=== PATIENT | male | born 1950 | race Caucasian/White ===

== ENCOUNTER 2017-11-21 15:30 | Inpatient (IN) | payer MEDICARE, OTHER ==
[2017-11-21 15:37] VITALS: BMI 24.3
--- NOTE | 2017-11-21 16:12 | PDOC ---
History of Present Illness - General History Source: Patient Exam Limitations: No Limitations - History of Present Illness Initial Comments: 11/21/17 17:55 The patient is a 67-year-old male with a significant past medical history of ETOH abuse, prostate cancer, and BPH, who presents to the emergency department with left rib/flank pain since last night. Patient reports he fell and hit the left side of his lower torso after having a few beers. He describes the pain as intermittent, sharp, and 10/10 in severity. He denies any head trauma and is unsure if he lost consciousness. He states the pain is not related to movement, and his pain can occur at rest. He states he has not taken any medication for pain. He also reports hitting his right medial wrist during the fall resulting in a small abrasion. He denies any skin breaks or external bleeding on the torso. He states he last drank 15 hours ago (vodka and brayan sabina). The patient denies chest pain, shortness of breath, cough, visual changes, headache and dizziness. The patient denies fever, chills, nausea, vomit, diarrhea and constipation. The patient denies dysuria, frequency, urgency and hematuria. Allergies: NKDA Past Surgical History: None reported Social History: daily ETOH use, current everyday smoker PCP: Dr. Meza <Supriya Riley - Last Filed: 11/21/17 17:55> <Margarita العلي - Last Filed: 11/21/17 18:01> <Lyssa Chiu - Last Filed: 11/21/17 22:25> - General Chief Complaint: Injury Stated Complaint: ABD PAIN Time Seen by Provider: 11/21/17 16:11 Past History <Supriya Riley - Last Filed: 11/21/17 17:55> - Past Medical History Anemia: No Asthma: No Cancer: No Cardiac Disorders: No CVA: No COPD: No CHF: No Dementia: No Diabetes: No GI Disorders: No Disorders: Yes (enlarged prostate) HTN: No Hypercholesterolemia: No Liver Disease: No Seizures: No Thyroid Disease: No - Surgical History Abdominal Surgery: No Appendectomy: No Cardiac Surgery: Yes Cholecystectomy: No Lung Surgery: No Neurologic Surgery: No Orthopedic Surgery: No - Immunization History Td Vaccination: Yes Immunization Up to Date: Yes - Suicide/Smoking/Psychosocial Hx Smoking Status: No Smoking History: Current every day smoker Years of Tobacco Use: 5 Have you smoked in the past 12 months: Yes Number of Cigarettes Smoked Daily: 10 Cigars Per Day: 0 Information on smoking cessation initiated: No 'Breaking Loose' booklet given: 03/11/15 Hx Alcohol Use: Yes Drug/Substance Use Hx: No Substance Use Type: Alcohol Hx Substance Use Treatment: No <Margarita العلي - Last Filed: 11/21/17 18:01> <Lyssa Chiu - Last Filed: 11/21/17 22:25> - Past Medical History Allergies/Adverse Reactions: Allergies Allergy/AdvReac Type Severity Reaction Status Date / Time No Known Allergies Allergy Verified 11/21/17 15:36 Home Medications: Ambulatory Orders Aspirin 81 mg PO PRN PRN 04/10/13 Hydroxyurea 500 mg PO BID 04/10/13 Tamsulosin HCl 0.4 mg PO BID 02/14/15 Review of Systems - Review of Systems Able to Perform ROS?: Yes Comments:: 11/21/17 17:55 GENERAL/CONSTITUTIONAL: No fever or chills. No weakness. HEAD, EYES, EARS, NOSE AND THROAT: No change in vision. No ear pain or discharge. No sore throat. CARDIOVASCULAR: No chest pain or shortness of breath. RESPIRATORY: No cough, wheezing, or hemoptysis. GASTROINTESTINAL: No nausea, vomiting, diarrhea or constipation. GENITOURINARY: No dysuria, frequency, or change in urination. MUSCULOSKELETAL: (+) Left rib/flank pain. No joint or muscle swelling. No neck pain. SKIN: No rash. NEUROLOGIC: No headache, vertigo, loss of consciousness, or change in strength/ sensation. ENDOCRINE: No increased thirst. No abnormal weight change. HEMATOLOGIC/LYMPHATIC: No anemia, easy bleeding, or history of blood clots. ALLERGIC/IMMUNOLOGIC: No hives or skin allergy. <Supriya Riley - Last Filed: 11/21/17 17:55> *Physical Exam - Vital Signs Last Vital Signs Temp Pulse Resp BP Pulse Ox 97.9 F 89 18 151/91 97 11/21/17 15:32 11/21/17 17:20 11/21/17 17:20 11/21/17 17:20 11/21/17 17:20 - Physical Exam Comments: 11/21/17 17:55 GENERAL: Awake, alert, and fully oriented, (+) anxious, (+) uncomfortable HEAD: No signs of trauma EYES: PERRLA, EOMI, sclera anicteric, conjunctiva clear ENT: Auricles normal inspection, hearing grossly normal, nares patent, oropharynx clear without exudates. Moist mucosa. (+) Tongue fasciculations. NECK: Normal ROM, supple, no lymphadenopathy, JVD, or masses LUNGS: Breath sounds equal, clear to auscultation bilaterally. No wheezes, and no crackles HEART: (+) Mildly tachycardic. (+) Tender in the left inferior posterior chest wall with no ecchymosis, crepitus, or deformity. Regular rhythm, normal S1 and S2, no murmurs, rubs or gallops ABDOMEN: Soft, (+) Tender in the LUQ, normoactive bowel sounds. No guarding, no rebound. No masses EXTREMITIES: Normal range of motion, no edema. No clubbing or cyanosis. No cords, erythema, or tenderness. No gross deformity. NEUROLOGICAL: Cranial nerves II through XII grossly intact. Normal speech, normal gait. (+) Anxious affect. SKIN: Warm, Dry, normal turgor, no rashes or lesions noted. <Supriya Riley - Last Filed: 11/21/17 17:55> - Vital Signs Last Vital Signs Temp Pulse Resp BP Pulse Ox 97.9 F 101 H 20 161/107 97 11/21/17 15:32 11/21/17 15:32 11/21/17 15:32 11/21/17 15:32 11/21/17 15:32 <Margarita العلي - Last Filed: 11/21/17 18:01> - Vital Signs Last Vital Signs Temp Pulse Resp BP Pulse Ox 97.9 F 89 18 151/91 97 11/21/17 15:32 11/21/17 17:20 11/21/17 17:20 11/21/17 17:20 11/21/17 17:20 <Lyssa Chiu - Last Filed: 11/21/17 22:25> ED Treatment Course - LABORATORY CBC & Chemistry Diagram: 11/21/17 16:59 11/21/17 16:59 - ADDITIONAL ORDERS Additional order review: Laboratory Results 11/21/17 11/21/17 16:59 16:59 Sodium 136 Potassium 4.9 Chloride 102 Carbon Dioxide 25 Anion Gap 9 BUN 14 Creatinine 0.8 Creat Clearance w eGFR > 60 Random Glucose 95 D Calcium 9.1 Total Bilirubin 0.9 AST 72 H D ALT 90 H D Alkaline Phosphatase 104 Total Protein 7.7 Albumin 4.0 Alcohol, Quantitative < 5.0 11/21/17 16:59 RBC 4.90 MCV 102.8 H MCHC 33.6 RDW 14.0 D MPV 8.2 Neutrophils % 81.4 Lymphocytes % 8.7 D Monocytes % 8.7 Eosinophils % 0.4 D Basophils % 0.8 - Medications Given in the ED: ED Medications Discontinued Medications Generic Name Dose Route Start Last Admin Trade Name Freq PRN Reason Stop Dose Admin Morphine Sulfate 6 mg 11/21/17 17:00 11/21/17 17:17 Morphine Injection - IVPUSH 11/21/17 17:01 6 mg ONCE ONE Administration <Supriya Riley - Last Filed: 11/21/17 17:55> - LABORATORY CBC & Chemistry Diagram: 11/21/17 16:59 11/21/17 16:59 <Margarita العلي - Last Filed: 11/21/17 18:01> - LABORATORY CBC & Chemistry Diagram: 11/21/17 16:59 11/21/17 16:59 - ADDITIONAL ORDERS Additional order review: Laboratory Results 11/21/17 11/21/17 16:59 16:59 Sodium 136 Potassium 4.9 Chloride 102 Carbon Dioxide 25 Anion Gap 9 BUN 14 Creatinine 0.8 Creat Clearance w eGFR > 60 Random Glucose 95 D Calcium 9.1 Total Bilirubin 0.9 AST 72 H D ALT 90 H D Alkaline Phosphatase 104 Total Protein 7.7 Albumin 4.0 Alcohol, Quantitative < 5.0 11/21/17 16:59 RBC 4.90 MCV 102.8 H MCHC 33.6 RDW 14.0 D MPV 8.2 Neutrophils % 81.4 Lymphocytes % 8.7 D Monocytes % 8.7 Eosinophils % 0.4 D Basophils % 0.8 - Medications Given in the ED: ED Medications Discontinued Medications Generic Name Dose Route Start Last Admin Trade Name Freq PRN Reason Stop Dose Admin Morphine Sulfate 6 mg 11/21/17 17:00 11/21/17 17:17 Morphine Injection - IVPUSH 11/21/17 17:01 6 mg ONCE ONE Administration Ondansetron HCl 4 mg 11/21/17 19:44 11/21/17 19:51 Zofran Injection IVPB 11/21/17 19:45 4 mg ONCE ONE Administration <Lyssa Chiu - Last Filed: 11/21/17 22:25> Medical Decision Making - Medical Decision Making 11/21/17 17:11 Pt presents to the ED complaining of LUQ and L posterior rib pain after falling against a table and hitting his ribs while intoxicated last night. Patient has a history of chronic daily ETOH use. Concern for rib fracture, less likely splenic laceration. Will check CXR, bedside FAST, CT chest abdomen pelvis. Will check labs and reassess. Will monitor for signs of worsening ETOH withdrawal. <Margarita العلي - Last Filed: 11/21/17 18:01> - Medical Decision Making 11/21/17 21:20 Patient Name: LIZ MALDONADO THIS IS A PRELIMINARY REPORT FROM [facility] EXAM: CT ABDOMEN AND PELVIS WITH IV CONTRAST DATE OF SERVICE: 2017-11-21 18:26:51 IMAGES: 301 TECHNIQUE: axial images from the lung bases to the iliac crest utilizing spiral imaging technique with multiplanar reconstructions from the axial data set. Oral contrast: 95 mL Omnipaque 350 IV contrast without noted complication INDICATION: Fall, left-sided pain, rib pain COMPARISON: CT chest performed same date FINDINGS: The lung bases are: bibasilar interstitial changes and mild/moderate bilateral posterior pleural thickening ABDOMEN: LIVER, SPLEEN, PANCREAS AND ADRENAL GLANDS:Hepatic steatosis. Several round and oval partially enhancing masses in the right lobe liver which are incompletely characterized, the imaging features are suggestive of hemangiomas. The spleen, pancreas and adrenal glands are remarkable for borderline splenomegaly, no enhancing splenic mass. GALLBLADDER AND BILIARY SYSTEM: The gallbladder appears normal. There are no calcified gallstones. There is no biliary tract dilatation. KIDNEYS: The bilateral kidneys are normal in size. abnormal renal enhancement/ solid mass: No .There is no hydronephrosis or perinephric inflammation. STOMACH AND BOWEL: Moderate size hiatal hernia containing fluid which can be due to GE reflux disease. Sigmoid colonic diverticulosis, no CT findings to suggest diverticulitis, There is no bowel dilatation, or evidence of obstruction. The appendix is visualized and appears normal. PERITONEUM/RETROPERITONEUM: There is no free intraperitoneal air or fluid. There is no bulky lymphadenopathy within the abdomen or pelvis. VESSELS: The abdominal aorta and its major branching vessels are unremarkable BONES: No acute or aggressive osseous finding VENTRAL ABDOMINAL WALL: unremarkable PELVIS: non acute IMPRESSION: No acute or aggressive osseous finding. Hepatic steatosis. Enhancing hepatic masses which are incompletely characterized on this exam, further evaluation may be performed triple phase contrast-enhanced CT or MRI with gadolinium. Borderline splenomegaly. Sigmoid colonic diverticulosis without CT findings to suggest diverticulitis. No ascites. No free intraperitoneal air. THIS DOCUMENT HAS BEEN ELECTRONICALLY SIGNED THIS IS A PRELIMINARY REPORT FROM [facility] DATE OF SERVICE: 2017-11-21 18:26:51 IMAGES: 315 EXAM: CT CHEST WITH IV CONTRAST TECHNIQUE: Axial images from the lung apices through the upper abdomen after the uneventful IV injection of contrast: 95 mL Omnipaque 350 REASON FOR EXAM: Fall with abdominal and rib pain COMPARISON: CT abdomen and pelvis performed same date FINDINGS: CARDIOVASCULAR: The heart is unremarkable. There is no significant pericardial effusion. The thoracic aorta and arch vessels normal in caliber : Yes . LUNGS: There is no airspace consolidation, pleural effusion. Mild bibasilar interstitial changes and minor posterior bibasilar pleural thickening. Subpleural interstitial changes and linear subpleural density right lung, small pneumothorax is not excluded. LYMPH NODES: There is no axillary, mediastinal or hilar lymphadenopathy. UPPER ABDOMEN: See CT exam abdomen pelvis performed concurrently. Fluid in the esophagus extends to the mid/upper thoracic esophagus. BONES: No acute or aggressive osseous finding. IMPRESSION: possible small right mid thorax pneumothorax. No obvious rib fracture. Recommend followup. Hiatal hernia with gastroesophageal reflux as discussed above. <Lyssa Chiu - Last Filed: 11/21/17 22:25> *DC/Admit/Observation/Transfer - Attestations Scribe Attestion: 11/21/17 17:56 Documentation prepared by Supriya Riley, acting as esthetician and manager medical spa for Margarita العلي MD, /DO. <Supriya Riley - Last Filed: 11/21/17 17:55> <Margarita العلي - Last Filed: 11/21/17 18:01> - Discharge Dispostion Admit: Yes <Lyssa Chiu - Last Filed: 11/21/17 22:25> Diagnosis at time of Disposition: Alcohol withdrawal, Pneumothorax on right - Discharge Dispostion Condition at time of disposition: Guarded
[2017-11-21] MEDS ORDERED: morphine CARPU-JECT 4 MG/1 ML DISP.SYRIN IVPUSH ONE (17:00)
[2017-11-21 17:12] LABS: BASO % 0.8 % (0-2.0); EOS % 0.4 % (0-4.5); HEMATOCRIT 50.4 % (35.4-49); HEMOGLOBIN 16.9 GM/dL (11.7-16.9); LYMPH % 8.7 % (8-40); MCH 34.6 pg (25.7-33.7); MCHC 33.6 g/dl (32.0-35.9); MEAN CELL VOLUME 102.8 fl (80-96); MEAN PLT VOLUME 8.2 fl (7.5-11.1); MONO % 8.7 % (3.8-10.2); NEUT % 81.4 % (42.8-82.8); PLATELET COUNT 667 K/MM3 (134-434); WHITE BLOOD COUNT 12.7 K/mm3 (4.0-10.0)
[2017-11-21] MEDS ORDERED: MORPHINE SULFATE 10 MG/1 ML *VIAL ONE (17:12)
[2017-11-21 17:42] LABS: ANION GAP 9 (8-16); BILIRUBIN,TOTAL 0.9 mg/dL (0.2-1.0); BLOOD UREA NITROGEN 14 mg/dL (7-18); CALCIUM 9.1 mg/dL (8.5-10.1); CHLORIDE 102 mmol/L (98-107); CO2 25 mmol/L (21-32); CREATININE 0.8 mg/dL (0.7-1.3); GLUCOSE,RANDOM 95 mg/dL (74-106); POTASSIUM 4.9 mmol/L (3.5-5.1); SGOT/AST 72 U/L (15-37); SGPT/ALT 90 U/L (12-78); SODIUM 136 mmol/L (136-145); TOT PROT 7.7 g/dl (6.4-8.2)
[2017-11-21 17:43] LABS: ALK PHOS 104 U/L (45-117)
[2017-11-21] MEDS ORDERED: ONDANSETRON 4 MG/2 ML VIAL IVPB ONE (19:44)
[2017-11-21] MEDS ORDERED: ONDANSETRON 4 MG/2 ML VIAL ONE (19:46)
[2017-11-21] MEDS ORDERED: FOLIC ACID INJECTION - 1 MG, THIAMINE HCL 100 MG, MULTIVIT INJECTION ADULT 10 ML in SOD... IVPB ONE ×2 (20:37→23:17)
[2017-11-21] MEDS ORDERED: chlordiazePOXIDE HCL 25 MG CAPSULE PO ONE (21:54)
[2017-11-21] MEDS ORDERED: chlordiazePOXIDE HCL 25 MG CAPSULE ONE (21:59)
--- NOTE | 2017-11-21 22:09 | PN ---
Teaching Attending Note Name of Resident: Cindy Altamirano ATTENDING PHYSICIAN STATEMENT I saw and evaluated the patient. I reviewed the resident's note and discussed the case with the resident. I agree with the resident's findings and plan as documented. SUBJECTIVE: 67 M with pmhx. of prostate ca, CAD, Etoh abuse, who presents with left rib and flank pain. Notes he had several beers and fell. States he hit his left side. States he also hit his wrist. States he DID NOT lose conciousness or hit his head. States he has L. rib pain, but denies any shortness of breath, chest pain or pressure. No N/V/D. No fevers or chills. Denies any palpitations, headache, dizziness, or lightheadedness. OBJECTIVE: Physical: VS: Vital Signs Period Temp Pulse Resp BP Sys/Gray Pulse Ox Last 24 Hr 97.9 F 89-101 18-20 151-161/91-107 97-97 GEN: NAD, resting in bed, AA0X3 HEENT:NCAT, PERRL, Throat without erythema or exudates CARD: RRR S1, S2, Left rib 10/11 pain on palpation RESP: CTAB ABD: BSx4. NTD to palpation EXT:- C/C/E CBCD WBC 12.7 K/mm3 (4.0-10.0) H 11/21/17 16:59 RBC 4.90 M/mm3 (4.00-5.60) 11/21/17 16:59 Hgb 16.9 GM/dL (11.7-16.9) 11/21/17 16:59 Hct 50.4 % (35.4-49) H 11/21/17 16:59 MCV 102.8 fl (80-96) H 11/21/17 16:59 MCHC 33.6 g/dl (32.0-35.9) 11/21/17 16:59 RDW 14.0 % (11.9-15.9) D 11/21/17 16:59 Plt Count 667 K/MM3 (134-434) H D 11/21/17 16:59 MPV 8.2 fl (7.5-11.1) 11/21/17 16:59 CMP Sodium 136 mmol/L (136-145) 11/21/17 16:59 Potassium 4.9 mmol/L (3.5-5.1) 11/21/17 16:59 Chloride 102 mmol/L (98-107) 11/21/17 16:59 Carbon Dioxide 25 mmol/L (21-32) 11/21/17 16:59 Anion Gap 9 (8-16) 11/21/17 16:59 BUN 14 mg/dL (7-18) 11/21/17 16:59 Creatinine 0.8 mg/dL (0.7-1.3) 11/21/17 16:59 Creat Clearance w eGFR > 60 (>60) 11/21/17 16:59 Random Glucose 95 mg/dL (74-106) D 11/21/17 16:59 Calcium 9.1 mg/dL (8.5-10.1) 11/21/17 16:59 Total Bilirubin 0.9 mg/dL (0.2-1.0) 11/21/17 16:59 AST 72 U/L (15-37) H D 11/21/17 16:59 ALT 90 U/L (12-78) H D 11/21/17 16:59 Alkaline Phosphatase 104 U/L (45-117) 11/21/17 16:59 Total Protein 7.7 g/dl (6.4-8.2) 11/21/17 16:59 Albumin 4.0 g/dl (3.4-5.0) 11/21/17 16:59 Home Medications Medication Instructions Recorded Aspirin 81 mg PO PRN PRN 04/10/13 Hydroxyurea 500 mg PO BID 04/10/13 Tamsulosin HCl 0.4 mg PO BID 02/14/15 CT CHEST/ABD/PELVIS: IMPRESSION: No acute or aggressive osseous finding. Hepatic steatosis. Enhancing hepatic masses which are incompletely characterized on this exam, further evaluation may be performed triple phase contrast-enhanced CT or MRI with gadolinium. Borderline splenomegaly. Sigmoid colonic diverticulosis without CT findings to suggest diverticulitis. No ascites. No free intraperitoneal air. IMPRESSION: possible small right mid thorax pneumothorax. No obvious rib fracture. Recommend followup. Hiatal hernia with gastroesophageal reflux as discussed above. ASSESSMENT AND PLAN: 67 M with pmhx. of prostate ca, CAD, Etoh abuse, who presents with left rib and flank pain, who is being admitted for a possible small pneumonothorax and for etoh withdrawl. 1.) Fall Mechanical - Did NOT hit head 2.) ?Possible small traumatic pneumothorax - Await final read of CT - O2 - Observe - Repeat CXR in Am 3.) ETOH Withdrawl - Detox consult - CIWA - Librium - Thiamine/Folic A 4.) Transaminitits - Most likley due to etoh abuse - Trend - Check. Hepatitis Panel 5.) Hepatic Masses - Oncology/GI consult - AFP - MRI when able 6.) CAD? - C/W Home meds 7.) Essential Thrombocytosis? - C/W Hydrea/ASA 8.) Dvt Ppx - Heparin [address] in Med-Tele
--- NOTE | 2017-11-21 22:16 | HP ---
CHIEF COMPLAINT: s/p mechanical fall PCP: HISTORY OF PRESENT ILLNESS: 67 y/o M with PMH EtOH abuse, prostate CA, BPH, who presents to the ED with L rib pain over the past two days. As per pt, on Wednesday night, he drank 1 pint of vodka brayan sabina and fell against a coffee table in his living room. He states that he fell on his L side, however he denied LOC or head trauma during the event. His L rib pain is currently a 10/10 sharp "stabbing pain", and has been progressively worsening over the last two days. It is intermittent, the episodes last for approx 1 minute and have no alleviating fx. Pt states that talking as well as deep breathing exacerbate his pain. During this time, pt also endorses mild nausea (with 1 episode of NBNB emesis while in the ED), diaphoresis, anxiety, and tremor in his upper extremities. He states that he decided to come to the hospital today, since his rib pain became unbearable. Otherwise, denies CASAS, fever, chills, or changes in urinary or bowel function. Pt lives at home with his son. 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 1/2 ppd x 15 yrs. Has thoughts of quitting, however has been unable to. Alcohol: current daily drinker- drinks 1/2 -1 pint of liquor per day. Drugs: denies Family History: father- passed from pancreatic CA Allergies No Known Allergies Allergy (Verified 11/21/17 15:36) HOME MEDICATIONS: Home Medications Medication Instructions Recorded Aspirin 81 mg PO PRN PRN 04/10/13 Hydroxyurea 500 mg PO BID 04/10/13 Tamsulosin HCl 0.4 mg PO BID 02/14/15 REVIEW OF SYSTEMS CONSTITUTIONAL: +diaphoresis Absent: fever, chills, generalized weakness, malaise, loss of appetite, weight change HEENT: Absent: rhinorrhea, nasal congestion, throat pain, throat swelling, difficulty swallowing, mouth swelling, ear pain, eye pain, visual changes CARDIOVASCULAR: Absent: chest pain, syncope, palpitations, irregular heart rate, lightheadedness , peripheral edema RESPIRATORY: Absent: cough, shortness of breath, dyspnea with exertion, orthopnea, wheezing, stridor, hemoptysis GASTROINTESTINAL: Absent: abdominal pain, abdominal distension, nausea, vomiting, diarrhea, constipation, melena, hematochezia GENITOURINARY: Absent: dysuria, frequency, urgency, hesitancy, hematuria, flank pain, genital pain MUSCULOSKELETAL: +rib pain Absent: myalgia, arthralgia, joint swelling, back pain, neck pain SKIN: Absent: rash, itching, pallor HEMATOLOGIC/IMMUNOLOGIC: Absent: easy bleeding, easy bruising, lymphadenopathy, frequent infections ENDOCRINE: Absent: unexplained weight gain, unexplained weight loss, heat intolerance, cold intolerance NEUROLOGIC: +tremor in upper extremities Absent: headache, focal weakness or paresthesias, dizziness, unsteady gait, seizure, mental status changes, bladder or bowel incontinence PSYCHIATRIC: +anxiety Absent: depression, suicidal or homicidal ideation, hallucinations. PHYSICAL EXAMINATION Vital Signs 11/21/17 15:32 Temperature 97.9 F Pulse Rate 101 H Pulse Rate [ Apical] Respiratory 20 Rate Blood Pressure 161/107 Blood Pressure [Right Arm] O2 Sat by Pulse 97 Oximetry (%) GENERAL: Awake, alert, and fully oriented, in mild distress. HEAD: Normal with no signs of trauma. EYES: Pupils equal, round and reactive to light, extraocular movements intact, sclera anicteric, conjunctiva clear. EARS, NOSE, THROAT: Ears normal, nares patent, oropharynx clear without exudates. Moist mucous membranes. NECK: Normal range of motion, supple. LUNGS: Breath sounds equal, clear to auscultation bilaterally. No wheezes, and no crackles. No accessory muscle use. HEART: Tachycardic rate and rhythm, normal S1 and S2 without murmur, rub or gallop. ABDOMEN: Soft, nontender, not distended, normoactive bowel sounds, +L flank guarding. no rebound MUSCULOSKELETAL: tender to gentle palpation L flank. LOWER EXTREMITIES: 2+ posterior tibial pulses, warm, well-perfused. No calf tenderness. No peripheral edema. NEUROLOGICAL: Cranial nerves II-XII intact. PSYCHIATRIC: Anxious SKIN: Diaphoretic Laboratory Results 11/21/17 11/21/17 11/21/17 16:59 16:59 16:59 WBC 12.7 H RBC 4.90 Hgb 16.9 Hct 50.4 H MCV 102.8 H MCH 34.6 H MCHC 33.6 RDW 14.0 D Plt Count 667 H D MPV 8.2 Neutrophils % 81.4 Lymphocytes % 8.7 D Monocytes % 8.7 Eosinophils % 0.4 D Basophils % 0.8 Sodium 136 Potassium 4.9 Chloride 102 Carbon Dioxide 25 Anion Gap 9 BUN 14 Creatinine 0.8 Creat Clearance w eGFR > 60 Random Glucose 95 D Calcium 9.1 Total Bilirubin 0.9 AST 72 H D ALT 90 H D Alkaline Phosphatase 104 Total Protein 7.7 Albumin 4.0 Alcohol, Quantitative < 5.0 EKG -normal sinus, Qtc 438 ms Radio Abd/pelvis CT: hepatic masses, sigmoid colon diverticulosis without diverticulitis. Official read pending CXR: R sided tracheal deviation, official read pending CT chest: possible R mid thorax pneumothorax, without fx - official read pending ASSESSMENT/PLAN: 67 y/o M with PMH EtOH abuse, prostate CA, BPH, who presents to the ED with L rib pain over the past two days. As per pt, on Wednesday night, he drank 1 pint of vodka brayan sabina and fell against a coffee table in his living room. Pt admitted to telemetry for alcohol withdrawal and small R mid thorax pneumothorax 2/2 mechanical fall. #Alcohol withdrawal -Current CIWA score: 11 - mild to moderate withdrawal, last drink Wednesday -CAGE: 3/4 -Continue to check CIWA -Received banana bag in ED -Started on librium protocol -Thiamine 100mg PO qd -Folate 1mg PO qd -Detox consult- Dr. Bejarano #Small R mid thorax pneumothorax 2/2 mechanical fall -Pt without LOC or head trauma -F/u official report-CT ; if minor, can reabsorb. If severe, may need chest tube -F/u CXR tomorrow -If in pain, can give low dose morphine -Continue with NC 02 #Hepatic masses, hx EtOH abuse -F/u AFP -GI consult- Dr. Morgan -Heme-onc consult: Dr. Mendoza #Transaminitis 2/2 EtOH abuse -Continue to f/u CMP -F/u hepatitis level #Essential thrombocytosis -Pt follows with Dr. Alexis Napier, [address] -Continue Hydroxyurea 500 mg PO BID #BPH -Continue tamsulosin 0.4mg PO BID #CAD -Continue aspirin 81mg PO qd #PPX DVT: hep SQ 5000 BID #F/E/N IV NS 100 cc/hr Monitor electrolytes NPO for time being, to prevent risk aspiration #Dispo continued monitoring on telemetry Visit type - Emergency Visit Emergency Visit: Yes ED Registration Date: 11/21/17 Care time: The patient presented to the Emergency Department on the above date and was hospitalized for further evaluation of their emergent condition. - New Patient This patient is new to me today: Yes Date on this admission: 11/22/17 - Critical Care Critical Care patient: No
[2017-11-21] MEDS ORDERED: chlordiazePOXIDE HCL 25 MG CAPSULE PO PRN (22:51)
[2017-11-21] MEDS ORDERED: ASPIRIN 81 MG CHEWABLE TABLETS PO PRN (22:55)
[2017-11-21] MEDS ORDERED: TAMSULOSIN HCL 0.4 MG CAP.ER.24H (FP) ONE (23:14)
[2017-11-21] MEDS: TAMSULOSIN HCL 0.4 MG CAP.ER.24H (FP) PO SCH (23:16)
[2017-11-21] MEDS ORDERED: SODIUM CHLORIDE 1,000 ML IV SCH (23:30)
[2017-11-21] MEDS: chlordiazePOXIDE HCL 25 MG CAPSULE PO SCH (23:51)
[2017-11-22] MEDS: HYDROXYUREA 500 MG CAPSULE PO SCH ×2 (01:07→11:27)
[2017-11-22] MEDS ORDERED: IBUPROFEN 600 MG TABLET (FP) PO ONE ×2 (05:01→05:17)
[2017-11-22] MEDS ORDERED: chlordiazePOXIDE HCL 25 MG CAPSULE ONE ×2 (05:45→11:25)
[2017-11-22] MEDS: chlordiazePOXIDE HCL 25 MG CAPSULE PO SCH ×2 (05:48→11:27)
[2017-11-22 06:56] LABS: BASO % 0.5 % (0-2.0); EOS % 0.7 % (0-4.5); HEMATOCRIT 45.1 % (35.4-49); HEMOGLOBIN 15.1 GM/dL (11.7-16.9); LYMPH % 12.6 % (8-40); MCH 34.5 pg (25.7-33.7); MCHC 33.5 g/dl (32.0-35.9); MEAN PLT VOLUME 8.6 fl (7.5-11.1); MONO % 7.7 % (3.8-10.2); NEUT % 78.5 % (42.8-82.8); PLATELET COUNT 573 K/MM3 (134-434); RBC 4.38 M/mm3 (4.00-5.60); RDW 14.6 % (11.9-15.9); WHITE BLOOD COUNT 9.8 K/mm3 (4.0-10.0)
[2017-11-22 07:19] LABS: CHLORIDE 102 mmol/L (98-107); POTASSIUM 4.5 mmol/L (3.5-5.1); SODIUM 138 mmol/L (136-145)
[2017-11-22 07:24] LABS: ALBUMIN 3.4 g/dl (3.4-5.0); ALK PHOS 94 U/L (45-117); ANION GAP 9 (8-16); BILIRUBIN,TOTAL 1.4 mg/dL (0.2-1.0); BLOOD UREA NITROGEN 14 mg/dL (7-18); CALCIUM 8.9 mg/dL (8.5-10.1); CO2 27 mmol/L (21-32); CREATININE 0.7 mg/dL (0.7-1.3); GLUCOSE,RANDOM 78 mg/dL (74-106); SGOT/AST 58 U/L (15-37); SGPT/ALT 73 U/L (12-78); TOT PROT 6.8 g/dl (6.4-8.2)
--- NOTE | 2017-11-22 07:51 | MSN ---
Progress Note (short form) - Note Progress Note: Subjective: Patient was seen this morning and complains of left rib pain 05/20. Patient states he is still tremulous but much improved from yesterday, his last drink was Wednesday. Patient states he had nausea/ vomiting last night but denies N/V today. Denies chest pain, abdominal pain, SOB. Objective: Last Vital Signs Temp Pulse Resp BP Pulse Ox 97.1 F L 72 18 112/69 95 11/22/17 06:26 11/22/17 06:51 11/22/17 06:51 11/22/17 06:51 11/22/17 06:51 Intake & Output 11/19/17 11/20/17 11/21/17 11/22/17 23:59 23:59 23:59 23:59 Weight 160 lb Physical exam General: awake, alert, oriented x3. In no acute distress HEENT: normorcephalic, atraumatic. PERRLA. EOMI. clear conjunctiva. Lungs: CTA b/l. no wheezes, crackles or rhonci appreciated. Heart: RRR, normal S1 and S2 without murmur, rub or gallop appreciated. Abdomen: soft, nontender, nondistended. normoactive bowel sounds x4. Musculoskeletal: Left lower rib pain/ tenderness. Left flank tenderness. Extremities: Pulses 2+ B/L on LE and UE. No edema noted. Slight tremor on UE when hand outstretched. CBC, BMP 11/22/17 05:34 11/22/17 05:34 Abnormal Lab Results 11/21/17 11/21/17 11/22/17 16:59 16:59 05:34 WBC 12.7 H Hct 50.4 H MCV 102.8 H 103.0 H MCH 34.6 H 34.5 H Plt Count 667 H D 573 H Total Bilirubin AST 72 H D ALT 90 H D 11/22/17 05:34 WBC Hct MCV MCH Plt Count Total Bilirubin 1.4 H D AST 58 H ALT Assessment/ Plan: 67yo M with PMH of EtOH abuse, BPH who presented to the ED with left lower rib pain s/p fall on Wednesday night after he drank 1 pint of vodka brayan sabina. Patient is admitted to telemetry for alcohol withdrawal and possible right sided pneumothorax. # Mild Alcohol withdrawal - current CIWA score 5 - librium protocol - thiamine 100mg PO qd, folate 1mg PO qd - detox consult # left lower rib pain/ tenderness secondary to fall # small ri
[2017-11-22] MEDS ORDERED: FOLIC ACID 1 MG TABLET (FP) PO SCH (10:00)
[2017-11-22] MEDS: TAMSULOSIN HCL 0.4 MG CAP.ER.24H (FP) PO SCH (11:27)
--- NOTE | 2017-11-22 13:06 | PN ---
Progress Note (short form) - Note Progress Note: PULMONARY CONSULTATION DICTATED 11/22/17 IMP MULTIPLE RIB FX S/P MECHANICAL FALL ETOH ABUSE LIVER MASSES LIKELY HEMANGIOMAS PLAN O2 INCENTIVE SPIROMETER ANALGESICS DETOX PROTOCOL DR CONNORS Problem List - Problems (1) Rib fracture Code(s): S22.39XA - FRACTURE OF ONE RIB, UNSP SIDE, INIT FOR CLOS FX (2) Alcohol withdrawal Code(s): F10.239 - ALCOHOL DEPENDENCE WITH WITHDRAWAL, UNSPECIFIED (3) Liver masses Code(s): R16.0 - HEPATOMEGALY, NOT ELSEWHERE CLASSIFIED
[2017-11-22 13:14] VITALS: BP 114/59; PULSE 70; TEMP 98
--- NOTE | 2017-11-22 13:53 | CONS ---
DATE OF CONSULTATION: 11/22/2017 REFERRING PHYSICIAN: HISTORY: The patient is a 67-year-old male with a past medical history of prostate cancer, history of ETOH abuse, BPH admitted to [facility] with the complaint of left-sided rib pain over the past 2 days. The patient apparently on Wednesday evening drank approximately a bottle of vodka with brayan sabina, and he fell against the coffee table and hit his left side. He denied any loss of consciousness, head trauma. Denied any chest pain, palpitations, shortness of breath prior to this episode. He presents to the emergency room with above. In the emergency room, he complained of left-sided rib pain stabbing in character progressively worsening over the 2 days prior to admission. He denied any fevers or chills. He denied any hemoptysis. He underwent a CT scan of the chest, which revealed evidence of 2 nondisplaced acute rib fractures within the lateral 10th-11th ribs. No evidence of pneumothorax was appreciated. No evidence of pleural effusion. He was noted to have severe, diffuse hepatic steatosis with enhancing liver lesions likely secondary to hemangioma. PAST MEDICAL HISTORY: Again, includes ETOH, prostate cancer, BPH. SOCIAL HISTORY: History of tobacco use. Still occasionally smokes. Currently not working. Previously employed at [employer]. REVIEW OF SYSTEMS: No orthopnea, no PND, no fever, no chills. Positive chest pain. No shortness of breath, no cough, no hemoptysis, no abdominal pain, no lower extremity edema. CURRENT MEDICATIONS: Include Hydrea, Flomax, Librium, normal saline, folic acid, vitamin B1. PHYSICAL EXAMINATION: Vital Signs: Blood pressure 97/75 and 109/72, respiratory rate 18, O2 saturation is 98% on room air. HEENT: Normocephalic and atraumatic. Neck: Supple. Heart: Regular with S1, S2. Chest: Clear. Abdomen: Soft. Bowel sounds positive. Extremities: No cyanosis or edema. Chest Wall: There is point tenderness in the left lower chest anteriorly. LABORATORIES: BUN 14, creatinine 0.7, bilirubin 1.4, WBCs 9.8, hemoglobin 15.1, hematocrit 45.1 with a platelet count of 573,000. Chest CT: No infiltrates, no effusions. Two rib fractures nondisplaced 10th and 11th. IMPRESSION: 1. Multiple rib fractures status post mechanical fall secondary to ethyl alcohol. 2. History of ethyl alcohol abuse. 3. History of benign prostatic hypertrophy. 4. History of prostate cancer. 5. Hepatic mass, likely hemangioma. PLAN: Incentive spirometry. Nasal O2 p.r.n. Analgesics. Detoxification protocol. Librium. Consider workup for hemangioma protocol for liver lesions. LUIS CONNORS M.D. [id number]
--- NOTE | 2017-11-22 13:55 | DS ---
Physical Exam: SUBJECTIVE: Patient seen and examined in the ED awaiting bed assignment. Patient states he feels well, not short of breath, no pain. Wants to go home now, does not want further tests. He states that he has a will to stop drinking for himself, for his kids, for his . OBJECTIVE: Patient should stay for alcohol detox, but on my exam he was sober, awake alert , steady gait States he wants to go home and try to stop alcohol on his own, does not referral to any alcohol detox or rehab. POC reviewed with patient, he understands and has shown capacity to make his own decisions. He is aware that he is risking sudden , alcohol withdrawal seizures. Risking a fall with another injury. He is aware, still wants to sign out. He ambulated apx 50 feet around the ED, steady gait. No tremors seen or lower extremity weakness. No pneumothorax seen on CT scan of chest official read Vital Signs Period Temp Pulse Resp BP Sys/Gray Pulse Ox Last 24 Hr 97.1 F-98.0 F 59-101 16-20 109-161/59-107 95-98 PHYSICAL EXAM GENERAL: The patient is awake, alert, and fully oriented, in no acute distress. HEAD: Normal with no signs of trauma. EYES: PERRL, extraocular movements intact, sclera anicteric, conjunctiva clear. ENT: Ears normal, nares patent, oropharynx clear without exudates, moist mucous membranes. NECK: Trachea midline, full range of motion, supple. LUNGS: Breath sounds equal, diminished on right lung base HEART: Regular rate and rhythm EXTREMITIES: 2+ pulses, warm, well-perfused, no edema. NEUROLOGICAL: Normal speech, steady gait PSYCH: Normal mood, normal affect. SKIN: Warm, dry, normal turgor, no rashes or lesions noted. LABS Laboratory Results - last 24 hr 11/21/17 11/21/17 11/21/17 16:59 16:59 16:59 WBC 12.7 H RBC 4.90 Hgb 16.9 Hct 50.4 H MCV 102.8 H MCH 34.6 H MCHC 33.6 RDW 14.0 D Plt Count 667 H D MPV 8.2 Neutrophils % 81.4 Lymphocytes % 8.7 D Monocytes % 8.7 Eosinophils % 0.4 D Basophils % 0.8 Sodium 136 Potassium 4.9 Chloride 102 Carbon Dioxide 25 Anion Gap 9 BUN 14 Creatinine 0.8 Creat Clearance w eGFR > 60 Random Glucose 95 D Calcium 9.1 Total Bilirubin 0.9 AST 72 H D ALT 90 H D Alkaline Phosphatase 104 Total Protein 7.7 Albumin 4.0 Alcohol, Quantitative < 5.0 11/22/17 11/22/17 05:34 05:34 WBC 9.8 RBC 4.38 Hgb 15.1 D Hct 45.1 MCV 103.0 H MCH 34.5 H MCHC 33.5 RDW 14.6 Plt Count 573 H MPV 8.6 Neutrophils % 78.5 Lymphocytes % 12.6 D Monocytes % 7.7 Eosinophils % 0.7 Basophils % 0.5 Sodium 138 Potassium 4.5 Chloride 102 Carbon Dioxide 27 Anion Gap 9 BUN 14 Creatinine 0.7 Creat Clearance w eGFR > 60 Random Glucose 78 Calcium 8.9 Total Bilirubin 1.4 H D AST 58 H ALT 73 Alkaline Phosphatase 94 Total Protein 6.8 Albumin 3.4 Alcohol, Quantitative HOSPITAL COURSE: Date of Admission:11/21/17 Date of Discharge: 11/22/17 Patient is a 67 year old male with a significant past medical history of ETOH abuse, prostate cancer, BPH. He presents to the ED on 11/21/2017 for rib pain for the past 2 days. Patient reports falling Wednesday night after drinking large amounts of vodka (1.5 liters) and fell against furniture and landed on his right side, rib area. Patient admitted for acute ETOH withdrawal, small right mid thorox pneumothorax CT/abdomen/pelvis / CT Chest with contrast 11/21/2017: No pleural effusion and possible mid thormax pneumothorax 2/2 mechnical fall. 1. no evidence of acute traumatic visceral injury within the chest, abdomen or pelvis 2. non displaced acute fractures within the lateral left 10, 11th ribs 3. severe diffuse hepatic steatosis. Several enhancing liver lesions, needs follow up. 4. moderate sized hiatal herina, mild fluid distension of the thoracic esophagus. Chest xray, no pneumothorax The patient has requested to sign out AMA (against medical advice). The patient came in to the ED for rib pain for the 2 days after drinking a large amount of Vodka. He was sober on my exam. He was alert and oriented and has shown me that he has capacity to make his own decisions. I discussed with the patient that the plan was to detox him, monitor his respiratory status ( pulmonary has been consulted), address the hepatic lesions (Oncology consult) as well as address the new hepatic lesions found (GI was consulted) I also assured him that he needs to have his symptoms closely monitored in the hospital for any acute alcohol withdrawal. The patient understood the risk of leaving against medical advice. The risks include sudden , withdrawal seizure, fall with injury and worsening of his overall condition. He does not want to stay. Signed out. Gait steady. Wants to stop drinking on his own, has done it before he stated. Minutes to complete discharge: 60 Discharge Summary Reason For Visit: PNEUMOTHORAX ON RIGHT Current Active Problems Alcohol withdrawal (Acute) Liver masses (Acute) Pneumothorax on right (Acute) Rib fracture (Acute) Condition: Guarded - Instructions Disposition: AGAINST MEDICAL ADVICE - Home Medications Comprehensive Discharge Medication List: Ambulatory Orders Aspirin 81 mg PO PRN PRN 04/10/13 Hydroxyurea 500 mg PO BID 04/10/13 Tamsulosin HCl 0.4 mg PO BID 02/14/15 This patient is new to me today: Yes Date on this admission: 11/22/17 Emergency Visit: Yes ED Registration Date: 11/21/17 Care time: The patient presented to the Emergency Department on the above date and was hospitalized for further evaluation of their emergent condition. Critical Care patient: No - Discharge Referral Referred to [facility] Med [facility] No
[2017-11-22] MEDS ORDERED: THIAMINE HCL 100 MG TABLET (FP) PO SCH (22:00)
[2017-11-22] MEDS ORDERED: chlordiazePOXIDE HCL 25 MG CAPSULE PO SCH (23:00)
--- NOTE | 2017-11-22 23:24 | EKG ---
Test Reason : Blood Pressure : / mmHG Vent. Rate : 079 BPM Atrial Rate : 079 BPM P-R Int : 142 ms QRS Dur : 082 ms QT Int : 382 ms P-R-T Axes : 037 004 018 degrees QTc Int : 438 ms NORMAL SINUS RHYTHM NORMAL ECG WHEN COMPARED WITH ECG OF 10-APR-2013 06:03, NO SIGNIFICANT CHANGE WAS FOUND Confirmed by JOSÉ MANUEL VELÁSQUEZ MD ([id number]) on 11/22/2017 11:23:43 PM Referred By: Confirmed By:JOSÉ MANUEL VELÁSQUEZ MD
[2017-11-23] MEDS ORDERED: chlordiazePOXIDE 5 MG CAPSULE PO SCH (23:00)
[2017-11-24 14:03] LABS: HBSAG SCREEN Negative (Negative); HEP A AB, IGM Negative (Negative); HEP B CORE AB, TOT Negative (Negative)
== END 2017-11-22 13:47 | disposition left against medical advice (07) | DRG 200 ==
LOC: JER 15:30 → JERBED 22:25 → UNDOADMIN 22:30
PROVIDERS: ADMIT Internal Medicine; ATTEND Nurse Practitioner Family
DX: S27.0XXA Traumatic pneumothorax, initial encounter (principal); S22.41XA Multiple fractures of ribs, right side, initial encounter for closed fracture; F10.230 Alcohol dependence with withdrawal, uncomplicated; R16.0 Hepatomegaly, not elsewhere classified; N40.0 Benign prostatic hyperplasia without lower urinary tract symptoms; D47.3 Essential (hemorrhagic) thrombocythemia; F17.200 Nicotine dependence, unspecified, uncomplicated; D18.00 Hemangioma unspecified site; K76.0 Fatty (change of) liver, not elsewhere classified; S60.811A Abrasion of right wrist, initial encounter; W18.39XA Other fall on same level, initial encounter; Y92.098 Other place in other non-institutional residence as the place of occurrence of the external cause; I25.10 Atherosclerotic heart disease of native coronary artery without angina pectoris; R74.0 Nonspecific elevation of levels of transaminase and lactic acid dehydrogenase [LDH]; K44.9 Diaphragmatic hernia without obstruction or gangrene; Z85.46 Personal history of malignant neoplasm of prostate
CPT/HCPCS: 36415; 71045-TC-FY; 71046-TC-FY; 71260-TC; 74177-TC; 80053; 80307; 82105; 85025; 86704; 86706; 86708; 86803; 87340; 93005; 93010; 99284-25; J7030; J8999

== ENCOUNTER 2021-08-28 05:14 | Day surgery (SDC) | payer MEDICARE, OTHER ==
[2021-08-25 16:15] VITALS: BMI 24.3
[2021-08-28 11:27] VITALS: TEMP 97.3
[2021-08-28 12:02] VITALS: BP 118/81; PULSE 64
== END 2021-08-28 12:27 | disposition home or self-care (01) ==
LOC: JASU-ENDO 05:14
PROVIDERS: ATTEND Internal Medicine Gastroenterology
PROC: 0DBN8ZX Excision of Sigmoid Colon, Via Natural or Artificial Opening Endoscopic, Diagnostic (ICD-10-PCS; 2021-08-28)
PROC: 0DB28ZX Excision of Middle Esophagus, Via Natural or Artificial Opening Endoscopic, Diagnostic (ICD-10-PCS; 2021-08-28)
PROC: 0DB78ZX Excision of Stomach, Pylorus, Via Natural or Artificial Opening Endoscopic, Diagnostic (ICD-10-PCS; 2021-08-28)
PROC: 0DBH8ZX Excision of Cecum, Via Natural or Artificial Opening Endoscopic, Diagnostic (ICD-10-PCS; principal; 2021-08-28 10:45)
DX: Z12.11 Encounter for screening for malignant neoplasm of colon (principal); D01.0 Carcinoma in situ of colon; D12.5 Benign neoplasm of sigmoid colon; K44.9 Diaphragmatic hernia without obstruction or gangrene; K21.00 Gastro-esophageal reflux disease with esophagitis, without bleeding; K29.50 Unspecified chronic gastritis without bleeding; K57.30 Diverticulosis of large intestine without perforation or abscess without bleeding
CPT/HCPCS: 88305-TC; 88342-TC

== ENCOUNTER 2023-11-06 10:08 | Inpatient (IN) | payer OTHER ==
[2023-11-06 10:17] VITALS: BMI 24.3
[2023-11-06] MEDS ORDERED: SODIUM CHLORIDE 0.9% 500 ML INFUS.BAG IV ONE (12:33)
[2023-11-06] MEDS ORDERED: ACETAMINOPHEN 1000 MG/100 ML BAG IVPB ONE (12:33)
[2023-11-06] MEDS ORDERED: ACETAMINOPHEN INJECTION 100 ML IVPB ONE (12:44)
[2023-11-06 13:29] LABS: HEMATOCRIT 42.9 % (35.4-49); HEMOGLOBIN 14.4 GM/dL (11.7-16.9); MCH 36.6 pg (25.7-33.7); MCHC 33.6 g/dl (32.0-35.9); MEAN CELL VOLUME 108.9 fl (80-96); MEAN PLT VOLUME 8.3 fl (7.5-11.1); PLATELET COUNT 493 10^3/uL (134-434); RBC 3.94 M/mm3 (4.00-5.60); RDW 15.4 % (11.9-15.9); WHITE BLOOD COUNT 11.4 K/mm3 (4.0-10.0)
[2023-11-06 13:33] LABS: EPI CELLS 12 /uL (0-25.1); HYALINE CASTS 2 /uL (0-3.1); PH,URINE 5.5 (5.0-8.0); URINE APPEARANCE CLEAR; URINE BACTERIA 7 /uL (0-1359); URINE BILIRUBIN NEGATIVE (NEGATIVE); URINE COLOR DK YELLOW; URINE GLUCOSE (UA) NEGATIVE (NEGATIVE); URINE KETONE 2+ (NEGATIVE); URINE LEUK ESTERASE NEGATIVE (NEGATIVE); URINE NITRITE NEGATIVE (NEGATIVE); URINE PROTEIN TRACE (NEGATIVE); URINE WBC 13 /uL (0-25.8)
[2023-11-06 13:54] LABS: POTASSIUM 4.7 mmol/L (3.5-5.1)
[2023-11-06 13:56] LABS: CALCIUM 9.8 mg/dL (8.5-10.1)
[2023-11-06 13:57] LABS: ALBUMIN 3.6 g/dl (3.4-5.0); BLOOD UREA NITROGEN 23.1 mg/dL (7-18); MAGNESIUM 2.4 mg/dL (1.8-2.4)
[2023-11-06 14:01] LABS: BILIRUBIN,TOTAL 0.6 mg/dL (0.2-1); TOT PROT 8.2 g/dl (6.4-8.2)
[2023-11-06 14:25] LABS: URINE RBC 31.6 /uL (0-23.9)
[2023-11-06 14:59] LABS: ANISOCYTOSIS 2+; MACROCYTOSIS 2+
[2023-11-06] MEDS ORDERED: PIPERACILLIN/TAZOB 4.5 GM 4.5 GM in DEXTROSE 5%-WATER 100 ML IVPB ONE (15:42)
[2023-11-06] MEDS ORDERED: PIPERACILLIN/TAZOB 4.5 GM 4.5 GM/100 ML BAG IVPB ONE (16:36)
[2023-11-06 17:05] LABS: INR 1.16 (0.83-1.09); PROTHROMBIN TIME (PATIENT) 13.4 SEC (9.7-13.0)
[2023-11-06 17:08] LABS: ACTIVATED PTT 30.3 SECONDS (25.2-36.5)
[2023-11-06] MEDS ORDERED: ACETAMINOPHEN 1000 MG/100 ML BAG IVPB PRN (19:00)
[2023-11-07] MEDS ORDERED: ACETAMINOPHEN 1000 MG/100 ML BAG IVPB PRN (08:11)
[2023-11-07 10:55] LABS: POTASSIUM 5.5 mmol/L (3.5-5.1)
[2023-11-07 10:56] LABS: HEMATOCRIT 41.2 % (35.4-49); HEMOGLOBIN 14.2 GM/dL (11.7-16.9); MCH 37.5 pg (25.7-33.7); MCHC 34.5 g/dl (32.0-35.9); MEAN CELL VOLUME 108.6 fl (80-96); MEAN PLT VOLUME 8.4 fl (7.5-11.1); PLATELET COUNT 480 10^3/uL (134-434); RDW 15.4 % (11.9-15.9); WHITE BLOOD COUNT 8.6 K/mm3 (4.0-10.0)
[2023-11-07 11:07] LABS: ALBUMIN 3.3 g/dl (3.4-5.0); CALCIUM 9.4 mg/dL (8.5-10.1)
[2023-11-07 11:10] LABS: CREATININE 0.9 mg/dL (0.55-1.3)
[2023-11-07 11:12] LABS: TOT PROT 7.4 g/dl (6.4-8.2)
[2023-11-07 12:23] LABS: ANISOCYTOSIS 0; MACROCYTOSIS 0
[2023-11-07] MEDS: CEFTRIAXONE 1 GM in DEXTROSE 5%-WATER - 50 ML IVPB SCH (12:24)
[2023-11-07] MEDS: SODIUM CHLORIDE 1,000 ML IV SCH (12:24)
[2023-11-07] MEDS: HYDROXYUREA 500 MG CAPSULE PO SCH ×2 (12:25→23:43)
[2023-11-08] MEDS: SODIUM CHLORIDE 1,000 ML IV SCH ×2 (06:05→12:33)
[2023-11-08 10:09] LABS: INR 1.23 (0.83-1.09); PROTHROMBIN TIME (PATIENT) 14.2 SEC (9.7-13.0)
[2023-11-08 10:11] LABS: BASO % 0.3 % (0-2.0); EOS % 0.4 % (0-4.5); HEMATOCRIT 38.4 % (35.4-49); HEMOGLOBIN 13.5 GM/dL (11.7-16.9); LYMPH % 17.4 % (8-40); MCH 38.1 pg (25.7-33.7); MCHC 35.1 g/dl (32.0-35.9); MEAN CELL VOLUME 108.6 fl (80-96); MEAN PLT VOLUME 8.2 fl (7.5-11.1); NEUT % 70.9 % (42.8-82.8); PLATELET COUNT 446 10^3/uL (134-434); RBC 3.54 M/mm3 (4.00-5.60); WHITE BLOOD COUNT 7.5 K/mm3 (4.0-10.0)
[2023-11-08] MEDS: HYDROXYUREA 500 MG CAPSULE PO SCH (10:17)
[2023-11-08] MEDS: CEFTRIAXONE 1 GM in DEXTROSE 5%-WATER - 50 ML IVPB SCH (10:17)
[2023-11-08 10:24] LABS: POTASSIUM 4.4 mmol/L (3.5-5.1)
[2023-11-08 10:37] LABS: CALCIUM 8.7 mg/dL (8.5-10.1)
[2023-11-08 10:38] LABS: ALBUMIN 3.1 g/dl (3.4-5.0); BLOOD UREA NITROGEN 13.2 mg/dL (7-18); MAGNESIUM 2.1 mg/dL (1.8-2.4)
[2023-11-08 10:41] LABS: CREATININE 0.8 mg/dL (0.55-1.3); PHOSPHOROUS 3.5 mg/dL (2.5-4.9)
[2023-11-08 10:42] LABS: BILIRUBIN,TOTAL 0.8 mg/dL (0.2-1); TOT PROT 6.8 g/dl (6.4-8.2)
[2023-11-08] MEDS: ACETAMINOPHEN 1000 MG/100 ML BAG IVPB SCH ×2 (12:32→21:52)
[2023-11-08 13:20] VITALS: RESP 18
[2023-11-08] MEDS: HEPARIN NA (PORCINE) 5,000 UNITS/ML 1ML VIAL SQ SCH ×2 (15:32→21:53)
[2023-11-09] MEDS: ACETAMINOPHEN 1000 MG/100 ML BAG IVPB SCH (04:43)
[2023-11-09] MEDS: HEPARIN NA (PORCINE) 5,000 UNITS/ML 1ML VIAL SQ SCH ×3 (06:13→21:51)
[2023-11-09] MEDS: PANTOPRAZOLE 40 MG TABLET PO SCH (09:28)
[2023-11-09] MEDS: ASPIRIN 81 MG CHEWABLE TABLETS PO SCH (09:28)
[2023-11-09] MEDS: HYDROXYUREA 500 MG CAPSULE PO SCH (09:28)
[2023-11-09] MEDS: TAMSULOSIN HCL 0.4 MG CAP PO SCH (09:28)
[2023-11-09] MEDS: CEFTRIAXONE 1 GM in DEXTROSE 5%-WATER - 50 ML IVPB SCH (09:29)
[2023-11-09 11:41] LABS: BASO % 0.4 % (0-2.0); EOS % 0.7 % (0-4.5); HEMATOCRIT 36.9 % (35.4-49); HEMOGLOBIN 12.8 GM/dL (11.7-16.9); LYMPH % 17.3 % (8-40); MCH 37.5 pg (25.7-33.7); MCHC 34.6 g/dl (32.0-35.9); MEAN CELL VOLUME 108.5 fl (80-96); MONO % 6.8 % (3.8-10.2); NEUT % 74.8 % (42.8-82.8); PLATELET COUNT 424 10^3/uL (134-434); RDW 14.6 % (11.9-15.9)
[2023-11-09 11:45] LABS: POTASSIUM 3.7 mmol/L (3.5-5.1)
[2023-11-09 11:51] LABS: CALCIUM 8.1 mg/dL (8.5-10.1)
[2023-11-09 11:52] LABS: ALBUMIN 2.8 g/dl (3.4-5.0); BLOOD UREA NITROGEN 8.6 mg/dL (7-18)
[2023-11-09 11:55] LABS: CREATININE 0.8 mg/dL (0.55-1.3)
[2023-11-09 11:56] LABS: BILIRUBIN,TOTAL 0.4 mg/dL (0.2-1)
[2023-11-09 11:57] LABS: TOT PROT 6.2 g/dl (6.4-8.2)
[2023-11-09] MEDS: SODIUM CHLORIDE 1,000 ML IV SCH ×2 (14:07→20:56)
[2023-11-10] MEDS: HEPARIN NA (PORCINE) 5,000 UNITS/ML 1ML VIAL SQ SCH ×3 (05:49→21:44)
[2023-11-10] MEDS ORDERED: ACETAMINOPHEN 1000 MG/100 ML BAG IVPB PRN (08:16)
[2023-11-10] MEDS: TAMSULOSIN HCL 0.4 MG CAP PO SCH (09:24)
[2023-11-10] MEDS: CEFTRIAXONE 1 GM in DEXTROSE 5%-WATER - 50 ML IVPB SCH (09:24)
[2023-11-10] MEDS: HYDROXYUREA 500 MG CAPSULE PO SCH (09:25)
[2023-11-10] MEDS: PANTOPRAZOLE 40 MG TABLET PO SCH (09:26)
[2023-11-10] MEDS: ASPIRIN 81 MG CHEWABLE TABLETS PO SCH (09:26)
[2023-11-10 11:13] LABS: BASO % 0.3 % (0-2.0); EOS % 0.5 % (0-4.5); HEMATOCRIT 36.6 % (35.4-49); HEMOGLOBIN 12.5 GM/dL (11.7-16.9); LYMPH % 12.9 % (8-40); MCH 37.4 pg (25.7-33.7); MCHC 34.2 g/dl (32.0-35.9); MEAN CELL VOLUME 109.3 fl (80-96); MEAN PLT VOLUME 7.9 fl (7.5-11.1); MONO % 11.5 % (3.8-10.2); NEUT % 74.8 % (42.8-82.8); PLATELET COUNT 461 10^3/uL (134-434); RBC 3.35 M/mm3 (4.00-5.60); RDW 14.5 % (11.9-15.9); WHITE BLOOD COUNT 8.6 K/mm3 (4.0-10.0)
[2023-11-10 11:21] LABS: POTASSIUM 4.4 mmol/L (3.5-5.1)
[2023-11-10 11:57] LABS: BLOOD UREA NITROGEN 8.1 mg/dL (7-18); CALCIUM 8.6 mg/dL (8.5-10.1)
[2023-11-10 11:58] LABS: ALBUMIN 2.8 g/dl (3.4-5.0)
[2023-11-10 11:59] LABS: BILIRUBIN,TOTAL 0.4 mg/dL (0.2-1); TOT PROT 6.3 g/dl (6.4-8.2)
[2023-11-10 12:00] LABS: CREATININE 0.9 mg/dL (0.55-1.3)
[2023-11-10] MEDS: SODIUM CHLORIDE 1,000 ML IV SCH (13:20)
[2023-11-10] MEDS: metroNIDAZOLE 250 MG TABLET PO SCH ×2 (13:21→21:44)
[2023-11-10] MEDS: FOLIC ACID 1 MG TABLET (FP) PO SCH (13:21)
[2023-11-10] MEDS: CYANOCOBALAMIN (VITAMIN B-12) 1000 MCG/1 ML VIAL IM SCH (13:21)
[2023-11-10] MEDS: CEFUROXIME AXETIL 500 MG TABLET PO SCH (21:44)
[2023-11-11] MEDS: SODIUM CHLORIDE 1,000 ML IV SCH (02:42)
[2023-11-11] MEDS: HEPARIN NA (PORCINE) 5,000 UNITS/ML 1ML VIAL SQ SCH (05:31)
[2023-11-11] MEDS: metroNIDAZOLE 250 MG TABLET PO SCH (05:31)
[2023-11-11] MEDS: TAMSULOSIN HCL 0.4 MG CAP PO SCH (08:53)
[2023-11-11 09:39] LABS: BASO % 0.4 % (0-2.0); EOS % 0.3 % (0-4.5); HEMOGLOBIN 13.3 GM/dL (11.7-16.9); LYMPH % 14.7 % (8-40); MCH 37.1 pg (25.7-33.7); MCHC 34.1 g/dl (32.0-35.9); MEAN CELL VOLUME 108.8 fl (80-96); MONO % 10.5 % (3.8-10.2); NEUT % 74.1 % (42.8-82.8); PLATELET COUNT 521 10^3/uL (134-434); RBC 3.58 M/mm3 (4.00-5.60); RDW 14.5 % (11.9-15.9); WHITE BLOOD COUNT 9.7 K/mm3 (4.0-10.0)
[2023-11-11 10:04] LABS: POTASSIUM 4.2 mmol/L (3.5-5.1)
[2023-11-11] MEDS: CEFUROXIME AXETIL 500 MG TABLET PO SCH (10:07)
[2023-11-11] MEDS: PANTOPRAZOLE 40 MG TABLET PO SCH (10:07)
[2023-11-11] MEDS: FOLIC ACID 1 MG TABLET (FP) PO SCH (10:07)
[2023-11-11] MEDS: CYANOCOBALAMIN (VITAMIN B-12) 1000 MCG/1 ML VIAL IM SCH (10:07)
[2023-11-11] MEDS: ASPIRIN 81 MG CHEWABLE TABLETS PO SCH (10:07)
[2023-11-11] MEDS: HYDROXYUREA 500 MG CAPSULE PO SCH (10:11)
[2023-11-11 10:15] LABS: BILIRUBIN,TOTAL 0.6 mg/dL (0.2-1)
[2023-11-11 10:16] LABS: BLOOD UREA NITROGEN 6.3 mg/dL (7-18); TOT PROT 6.9 g/dl (6.4-8.2)
[2023-11-11 10:17] LABS: ALBUMIN 2.9 g/dl (3.4-5.0)
[2023-11-11 10:18] LABS: CREATININE 0.7 mg/dL (0.55-1.3)
[2023-11-11 13:08] VITALS: BP 117/68; PULSE 84; TEMP 98.6
== END 2023-11-11 14:28 | disposition home or self-care (01) | DRG 392 ==
LOC: JER 10:08 → JERBED 15:58 → J5S 18:24
DX: K57.20 Diverticulitis of large intestine with perforation and abscess without bleeding (principal); N40.0 Benign prostatic hyperplasia without lower urinary tract symptoms; F10.10 Alcohol abuse, uncomplicated; I10 Essential (primary) hypertension; E78.5 Hyperlipidemia, unspecified; K44.9 Diaphragmatic hernia without obstruction or gangrene; Z85.46 Personal history of malignant neoplasm of prostate; D75.839 Thrombocytosis, unspecified
CPT/HCPCS: 36415; 74018-TC-FY; 74177-TC; 80053; 81003; 83036; 83690; 83735; 84100; 84484; 85025; 85610; 85730; 86850; 86900; 86901; 87040; 87086; 93005; 93010; 99285-25; J0131; J1644; J8999; Q9967